=== PATIENT | male | born 1960 | race Caucasian/White ===

== ENCOUNTER → 2019-03-19 | Outpatient (CLI) | payer OTHER ==
[~2019-03-19] MED LIST: FLOMAX0.4 MG PO; PERCOCET 5-3251 EACH PO; TRAZODONE HCL50 MG PO
== END ==
LOC: RAD 15:21
DX: M86.9 Osteomyelitis, unspecified (principal); Z68.39 Body mass index [BMI] 39.0-39.9, adult